=== PATIENT | female | born 1990 | race Caucasian/White ===

== ENCOUNTER → 2018-11-16 | Outpatient (CLI) | payer OTHER ==
[~2018-11-16] MED LIST: birth control PO
== END ==
LOC: LAB 11:49
PROVIDERS: ATTEND Student in an Organized Health Care Education/Training Program
DX: O20.0 Threatened abortion (principal)
CPT/HCPCS: 36415; 84702

== ENCOUNTER 2018-12-20 04:53 | Observation (INO) | payer OTHER ==
[~2018-12-20] VITALS: Ht 170.2 cm; Wt 57.6 kg
[2018-12-20] VITALS (9 sets, daily range): BP systolic 96–108; BP diastolic 60–71
--- NOTE | 2018-12-20 05:04 | ER Report ---
History and Physical Time Seen By MD: 05:00 (ASTRID BONNER MD) Time Seen By MD: 07:00 (NADER DUMONT DO) HPI/ROS CHIEF COMPLAINT: lower abdominal pain HISTORY OF PRESENT ILLNESS: This is a 28 year old female. She is having abdominal pain, lower abdomen and off to the lower left. Severe and crampy in nature. Started to have a fever, low grade at home and some nausea and vomiting. Had a normal bowel movement despite feeling like she would possibly have diarrhea. No dysuria or frequency. No vaginal bleeding or discharge. Had miscarriage several weeks ago, resolved, but still has not had a period, and there is a possibility she could be . REVIEW OF SYSTEMS: Constitutional: As above. Eyes: No vision changes. ENT: No sore throat. No congestion. Cardiovascular: No chest pain. No palpitations Respiratory: No shortness of breath. No cough. Gastrointestinal: As above. Genitourinary: As above. Musculoskeletal: No musculoskeletal pain. Skin: No rashes. Neurological: No dizziness. No headache. (ASTRID BONNER MD) HPI/ROS Please see Dr. Bonner's note (NADER DUMONT DO) Allergies: Coded Allergies: No Known Drug Allergies (Unverified , 06/10/15) Home Meds Reported Medications Vits W-Ca,Fe,Fa(<1MG) ( VITAMINS) 1 Each Tablet, 1 EACH PO DAILY, TAB 12/20/18 Discontinued Reported Medications [ control] No Conflict Check, 1 TAB PO QDAY 06/10/15 Reviewed Nurses Notes: Yes (ASTRID BONNER MD) Hx Smoking: No Smoking Status: Never Smoker Hx Substance Use Disorder: No Hx Alcohol Use: No (ASTRID BONNER MD) Constitutional Vital Sign - Last 24 Hours 12/20/18 12/20/18 12/20/18 12/20/18 05:00 05:01 05:23 05:30 Temp 99.6 Pulse 113 109 Resp 20 B/P (MAP) 134/88 (103) 128/88 127/92 (104) Pulse Ox 95 98 O2 Delivery Room Air 12/20/18 12/20/18 12/20/18 12/20/18 05:38 05:53 06:00 06:08 Pulse 100 100 99 B/P (MAP) 121/84 (96) Pulse Ox 95 98 96 12/20/18 12/20/18 12/20/18 12/20/18 06:23 06:46 06:58 07:03 Pulse 104 104 102 B/P (MAP) 123/80 (94) Pulse Ox 98 99 99 12/20/18 12/20/18 12/20/18 12/20/18 07:08 07:13 07:18 07:23 Pulse 116 107 118 114 Pulse Ox 97 100 97 100 12/20/18 12/20/18 12/20/18 07:28 07:33 07:38 Pulse 108 108 114 Pulse Ox 95 95 (NADER DUMONT DO) Physical Exam General Appearance: The patient is alert. No acute distress. Eyes: Pupils are equal, round. No pallor, injection or icterus. ENT: Mucous membranes are moist. Normal oral mucosa. Posterior oropharynx is normal. Neck: Supple and non tender. Respiratory: Lungs are clear to auscultation. Cardiovascular: Regular rate and rhythm. No murmurs, gallops or rubs. Normal capillary refill. Gastrointestinal: Abdomen is soft, tender in periumbilical, suprapubic area and somewhat to the left lower abdomen as well. Nondistended. No rebound or guarding. Normal active bowel sounds. No costovertebral angle tenderness with percussion. Neurological: Alert and oriented x3. No focal neurologic deficits Skin: Warm and dry. No rashes. Musculoskeletal: No tenderness DIFFERENTIAL DIAGNOSIS: After history and physical exam, differential diagnosis was considered for abdominal pain in a female including but not limited to ovarian cyst, ovarian torsion, urinary tract infection (ASTRID BONNER MD) Physical Exam Please see Dr. Bonner's note (NADER DUMONT DO) Medical Decision Making Data Points Result Diagram: 12/20/18 0540 12/20/18 0540 Laboratory Hematology Test 12/20/18 05:40 White Blood Count 12.8 k/uL (4.5-11.0) H Red Blood Count 5.21 M/uL (4.17-5.56) Hemoglobin 15.4 g/dL (12.0-16.0) Hematocrit 43.9 % (34.0-47.0) Mean Corpuscular Volume 84.2 fL (80.0-96.0) Mean Corpuscular Hemoglobin 29.5 pg (26.0-33.0) Mean Corpuscular Hemoglobin Concent 35.0 g/dL (32.0-36.0) Red Cell Distribution Width 12.2 % (11.5-14.5) Platelet Count 240 K/uL (150-450) Mean Platelet Volume 9.0 fL (7.2-11.1) Neutrophils (%) (Auto) 83.4 % (39.4-72.5) H Lymphocytes (%) (Auto) 8.2 % (17.6-49.6) L Monocytes (%) (Auto) 7.7 % (4.1-12.4) Eosinophils (%) (Auto) 0.4 % (0.4-6.7) Basophils (%) (Auto) 0.3 % (0.3-1.4) Nucleated RBC Relative Count (auto) 0.0 /100WBC Neutrophils # (Auto) 10.6 K/uL (2.0-7.4) H Lymphocytes # (Auto) 1.0 K/uL (1.3-3.6) L Monocytes # (Auto) 1.0 K/uL (0.3-1.0) Eosinophils # (Auto) 0.1 K/uL (0.0-0.5) Basophils # (Auto) 0.0 K/uL (0.0-0.1) Nucleated RBC Absolute Count (auto) 0.00 K/uL Chemistry Test 12/20/18 05:40 Sodium Level 141 mmol/L (137-145) Potassium Level 3.6 mmol/L (3.5-5.0) Chloride Level 105 mmol/L (98-107) Carbon Dioxide Level 23 mmol/L (22-31) Blood Urea Nitrogen 15 mg/dl (7-18) Creatinine 0.70 mg/dl (0.52-1.04) Glomerular Filtration Rate Calc > 60.0 Random Glucose 97 mg/dl (75-110) Calcium Level 9.6 mg/dl (8.4-10.2) Total Bilirubin 0.6 mg/dl (0.2-1.3) Aspartate Amino Transf (AST/SGOT) 21 U/L (0-35) Alanine Aminotransferase (ALT/SGPT) 21 U/L (0-56) Alkaline Phosphatase 59 U/L (0-126) Total Protein 8.4 g/dl (6.3-8.2) Albumin 4.6 g/dl (3.5-5.0) Amylase Level 99 U/L (0-110) Lipase 70 U/L (23-300) Human Chorionic Gonadotropin, Qual Negative (NEGATIVE) Urinalysis Test 12/20/18 04:51 Urine Color Yellow Urine Clarity Clear Urine pH 6.0 pH (4.8-9.5) Urine Specific [place] 1.018 Urine Protein Negative mg/dL (NEGATIVE) Urine Glucose (UA) Negative mg/dL (NEGATIVE) Urine Ketones Negative mg/dL (NEGATIVE) Urine Blood Negative (NEGATIVE) Urine Nitrite Negative (NEGATIVE) Urine Bilirubin Negative (NEGATIVE) Urine Urobilinogen Negative mg/dL (0.2-1.9) Urine Leukocyte Esterase Negative (NEGATIVE) Urine RBC None /HPF (0-2/HPF) Urine WBC <1 /HPF (0-5/HPF) Urine Squamous Epithelial Cells Few /LPF (</=FEW) Urine Bacteria Negative /HPF (NONE-FEW) Urine Mucus None /HPF (NONE-FEW) (NADER DUMONT DO) EKG/Im[place] [facility] [place] NAME[place] Nicky Howell : 1990 MR: [id number] V: [id number] EXAM DATE: [id number] ORDERING PHYSICIAN: ASTRID BONNER TECHNOLOGIST: Location: [facility] [place] Patient: Nicky Howell : 1990 Visit/Account:[id number] Date of Sevice: 12/20/2018 COMPUTED TOMOGRAPHY ABDOMEN AND PELVIS WITH INTRAVENOUS CONTRAST DATE OF EXAM: 12/20/2018 5:30 AM INDICATION: Lower abdominal pain. COMPARISON: None. TECHNIQUE: Contrast enhanced abdomen and pelvis CT performed during the injection of 75 ml of Isovue 370. Sagittal and coronal reconstructions were performed. One of the following dose optimization techniques was utilized in the performance of this exam: Automated exposure control; adjustment of the mA and/or kV according to the patient's size; or use of an iterative reconstruction technique. Specific details can be referenced in the facility's radiology CT exam operational policy. FINDINGS: Lung bases: Clear. Liver and hepatic vasculature: Normal. Gallbladder and bile ducts: Normal. Spleen: Upper limit normal size. Pancreas: Normal. Adrenals: Normal. Kidneys, ureters and bladder: Normal. Retroperitoneum and aorta: Multiple mildly enlarged periaortic lymph nodes may be reactive. The aorta is normal. GI tract, mesentery and peritoneum: The appendix is inflamed, thick-walled and dilated to 9 mm in diameter. It extends medially from the cecum into the right hemipelvis. No pneumatosis or pneumoperitoneum. There is a small volume of free fluid in the pelvis, with a slightly thickened adjacent peritoneum as can be seen on image 120 series 2. No drainable collection/abscess. No evidence of obstruction elsewhere in the bowel. Uterus and adnexa: Collapsing follicle in left ovary. Bones and soft tissues: No acute abnormality or suspicious lesion. IMPRESSION: Acute appendicitis. Associated small volume of free fluid in the pelvis with suggestion of peritoneal inflammation. No evidence of gross perforation or drainable collection/abscess Dr. Ramírez discussed this case with ASTRID BONNER on 12/20/2018 7:03 AM. Report Dictated By: Raimundo Ramírez MD at 12/20/2018 6:52 AM Report E-Signed By: Raimundo Ramírez MD at 12/20/2018 7:04 AM WSN:[id number] (NADER DUMONT DO) ED Course/Re-evaluation Clinical Indication for ER IV: Hydration, IV Access (ASTRID BONNER MD) ED Course I assumed patient care from Dr. Bonner at 7:00. Patient was diagnosed with appendicitis. Dr. Nevarez evaluated the patient and admitted the patient to surgical service. Patient was stable at time of admission. Decision to Disposition Date: Dec 20, 2018 Decision to Disposition Time: 07:49 (NADER DUMONT DO) Depart Departure Latest Vital Signs Vital Signs Date Time Temp Pulse Resp B/P (MAP) Pulse Ox O2 Delivery O2 Flow Rate FiO2 12/20/18 07:38 114 95 12/20/18 06:46 123/80 (94) 12/20/18 05:01 99.6 20 Room Air (NADER DUMONT DO) Impression: Primary Impression: Appendicitis Condition: Condition Unchanged Disposition: Admitted from ER Referrals: REILLY BROOKS DO (PCP) ASTRID BONNER MD Dec 20, 2018 05:04 NADER DUMONT DO Dec 20, 2018 07:23
[2018-12-20] MEDS ORDERED: PREN-127 PO (05:06)
[2018-12-20] MEDS ORDERED: NS(*) 0.9% 1000 ML BAG 1,000 ML IV ONE (05:30)
[2018-12-20] MEDS ORDERED: IOPAMIDOL 76% 100 ML INFUS BTL 100 ML ONE (05:42)
[2018-12-20 06:00] LABS: PLATELET COUNT, AUTOMATED 240 K/uL (150-450)
--- NOTE | 2018-12-20 07:11 | RADIOLOGY IMAGING REPORT ---
FACILITY: [facility] - [place] PATIENT NAME: Nicky Howell : 1990 MR: [id number] V: [id number] EXAM DATE: [id number] ORDERING PHYSICIAN: ASTRID PEREZ TECHNOLOGIST: Location: [facility] Patient: Nicky Howell : 1990 Visit/Account:[id number] Date of Sevice: 12/20/2018 COMPUTED TOMOGRAPHY ABDOMEN AND PELVIS WITH INTRAVENOUS CONTRAST DATE OF EXAM: 12/20/2018 5:30 AM INDICATION: Lower abdominal pain. COMPARISON: None. TECHNIQUE: Contrast enhanced abdomen and pelvis CT performed during the injection of 75 ml of Isovue 370. Sagittal and coronal reconstructions were performed. One of the following dose optimization te chtyrellques was utilized in the performance of this exam: Automated exposure control; adjustment of the mA and/or kV according to the patient's size; or use of an iterative reconstruction technique. Spec [facility] details can be referenced in the facility's radiology CT exam operational policy. FINDINGS: Lung bases: Clear. Liver and hepatic vasculature: Normal. Gallbladder and bile ducts: Normal. Spleen: Upper limit normal size. Pancreas: Normal. Adrenals: Normal. Kidneys, ureters and bladder: Normal. Retroperitoneum and aorta: Multiple mildly enlarged periaortic lymph nodes may be reactive. The aor ta is normal. GI tract, mesentery and peritoneum: The appendix is inflamed, thick-walled and dilated to 9 mm in di ameter. It extends medially from the cecum into the right hemipelvis. No pneumatosis or pneumoperit oneum. There is a small volume of free fluid in the pelvis, with a slightly thickened adjacent perit oneum as can be seen on image 120 series 2. No drainable collection/abscess. No evidence of obstruc tion elsewhere in the bowel. Uterus and adnexa: Collapsing follicle in left ovary. Bones and soft tissues: No acute abnormality or suspicious lesion. IMPRESSION: Acute appendicitis. Associated small volume of free fluid in the pelvis with suggestion of peritoneal inflammation. No evidence of gross perforation or drainable collection/abscess Dr. Ramírez discussed this case with ASTRID PEREZ on 12/20/2018 7:03 AM. Report Dictated By: Raimundo Ramírez MD at 12/20/2018 6:52 AM Report E-Signed By: Raimundo Ramírez MD at 12/20/2018 7:04 AM WSN:[id number]
[2018-12-20] MEDS ORDERED: PIPERACILLIN/TAZO*3.375GM VIAL 3.375 GM in NS(*) 0.9% 100 ML MINI-BAG 100 ML IVPB ONE (07:15)
[2018-12-20] MEDS ORDERED: NS(*) 0.9% 1000 ML BAG 1,000 ML IV PRN ×2 (07:31→20:00)
[2018-12-20] MEDS ORDERED: MORPHINE 2 MG/ML SYR IVP PRN (07:35)
[2018-12-20] MEDS ORDERED: ONDANSETRON 4 MG/2 ML VIAL IVP PRN (07:35)
[2018-12-20] MEDS ORDERED: FLUSH 10 ML SYR IVP PRN (07:35)
[2018-12-20] MEDS ORDERED: NALOXONE HCL 0.4 MG/ML VIAL IVP PRN (07:35)
--- NOTE | 2018-12-20 08:14 | Gen Surgery History & Physical ---
History of Present Illness Chief Complaint RLQ abdominal pain History of Present Illness 28yo healthy female presents with RLQ abdominal pain that started at 9:00 pm last evening. Worse overnight. Had some N/V and F/C. CT c/w appendicitis. WBC 12K. No previous abdominal surgery. Only med is PNV. No allergies, no other medical problems. History Home Meds Reported Medications Vits W-Ca,Fe,Fa(<1MG) ( VITAMINS) 1 Each Tablet, 1 EACH PO DAILY, TAB 12/20/18 Discontinued Reported Medications [ control] No Conflict Check, 1 TAB PO QDAY 06/10/15 Allergies: Coded Allergies: No Known Drug Allergies (Unverified , 06/10/15) Review of Systems All Systems Reviewed/Normal: Yes, Except as Noted Constitutional: Fever, Chills Gastrointestinal: Nausea, Vomiting, Abdominal Pain Exam General Appearance: Alert, Awake, No Acute Distress, Afebrile Neuro: No Gross deficits Eyes: PERRLA GI: Other (Soft, RLQ and suprapubic TTP with peritoneal irritation) Extremities: Warm, Perfused Psych: Alert & Oriented X3, Appropriate Mood & Affect Medical Decision Making Data Points Result Diagram: 12/20/18 0540 12/20/18 0540 Assessment and Plan Problems: (1) Appendicitis Status: Acute Assessment & Plan: 12/20/18: Admit, NPO, IV fluids, IV abx, to OR today for lap appy. I have explained appendicitis and treatment with the patient in great detail. I have discussed non-operative management with abx only vs lap appy with her along with risks and benefits of each option. I have recommended lap appy due to the prolonged treatment course of non-operative management and 30% risk of recurrent appendicitis in next 2 years vs lap appy where most are treated and out of the hospital within 24 hours, often much less for uncomplicated appendicitis and surgery. I have explained the surgery in great detail along with risks and recovery. She indicates her understanding of this discussion and her questions have been answered. She would like to proceed with lap appy. Condition Stable. Time Spent: < 30 min Venous Thromboembolism VTE Risk Physician Assess for VTE Risk: Yes Patient's VTE Risk: Low VTE Diagnostic Test 2 Days Prior to Admit: No Antithrombotics Is Pt On Any Antithrombotics?: No Problem Qualifiers (1) Appendicitis: Appendicitis type: acute appendicitis Acute appendicitis type: with localized peritonitis Appendicitis gangrene presence: without gangrene Appendicitis perforation presence: without perforation Appendicitis abscess presence: without abscess Qualified Codes: K35.30 - Acute appendicitis with localized peritonitis, without perforation or gangrene CAMILO VELÁZQUEZ MD Dec 20, 2018 08:14
[2018-12-20] MEDS: FAMOTIDINE 20 MG TAB PO SCH ×2 (09:05→21:13)
[2018-12-20] MEDS: PIPERACILLIN/TAZO*3.375GM VIAL 3.375 GM in NS(*) 0.9% 100 ML MINI-BAG 100 ML IVPB SCH ×2 (14:18→20:00)
[2018-12-20] MEDS ORDERED: NORMOSOL R SOLN(*) 1000 ML BAG 1,000 ML IV ONE (16:25)
[2018-12-20] MEDS ORDERED: SUGAMMADEX SOD 200 MG/2 ML SDV ONE ×2 (17:58→19:31)
[2018-12-20] MEDS ORDERED: LIDOCAINE MPF 1% 5 ML VIAL ONE (17:58)
[2018-12-20] MEDS ORDERED: PROPOFOL EMUL(*) 10MG/ML 20 ML 20 ML ONE (17:58)
[2018-12-20] MEDS ORDERED: DEXAMETHASONE SOD 4 MG/ML VIAL ONE (17:58)
[2018-12-20] MEDS ORDERED: ONDANSETRON 4 MG/2 ML VIAL ONE (17:58)
[2018-12-20] MEDS ORDERED: ROCURONIUM BR 10 MG/ML 5 ML SY 5 ML ONE (17:59)
[2018-12-20] MEDS ORDERED: KETAMINE HCL 200 MG/20 ML MDV ONE (17:59)
[2018-12-20] MEDS ORDERED: fentaNYL CITR 250 MCG/5 ML AMP ONE (17:59)
[2018-12-20] MEDS ORDERED: ROPIVACAINE 0.5% 20 ML VIAL ONE (18:48)
[2018-12-20] MEDS ORDERED: MIDAZOLAM 2 MG/2 ML VIAL ONE (18:51)
[2018-12-20] MEDS ORDERED: ACETAMINOPHEN 325 MG TAB PO PRN (20:00)
[2018-12-20] MEDS ORDERED: fentaNYL CITR 100 MCG/2 ML AMP ONE (20:08)
--- NOTE | 2018-12-20 20:13 | Post Operative Progress Note ---
Post Operative Progress Note Date: Dec 20, 2018 Time: 19:59 Surgeon: Jenelle Dictation number: [id number] Anesthesia: GETA by Dr. Rudd Pre-Op Diagnosis: Acute appendicitis Post-Op Diagnosis: ZAID Findings: C/W dx, no perforation, gangrene, or abscess Procedure(s): Lap appy Specimen Removed:(May be N/A): Appendix Complications: None Fluids: see anesthesia record Estimated Blood Loss: Minimal Date OP Note Dictated: Dec 20, 2018 Time OP Note Dictated: 20:01 CAMILO VELÁZQUEZ MD Dec 20, 2018 20:13
--- NOTE | 2018-12-20 21:07 | OPERATIVE REPORT 1 ---
EVENT DATE: December 20, 2018 SURGEON: Nikita Almanzar MD ANESTHESIOLOGIST: Baltazar Bean MD ANESTHESIA: General endotracheal anesthesia. PREOPERATIVE DIAGNOSIS Acute appendicitis. POSTOPERATIVE DIAGNOSIS Acute appendicitis. PROCEDURE PERFORMED Laparoscopic appendectomy. COMPLICATIONS None. CONDITION Stable. BLOOD LOSS Minimal. FINDINGS The patient's appendix was inflamed, but there was no purulence, gangrene, or perforation. SPECIMEN Appendix. INDICATIONS This 28-year-old female was brought in through the Emergency Room with a one-day history of right lower quadrant abdominal pain and a CT consistent with acute appendicitis. White count was 12,000. She provided consent for laparoscopic appendectomy. DESCRIPTION OF PROCEDURE The patient was brought to the operating room and placed supine on the operating table. General endotracheal anesthesia was administered, and her abdomen was prepped and draped in a sterile fashion. Timeout was completed, and I injected the infraumbilical skin with 0.5% ropivacaine plain. I made a curvilinear smiley face incision on the inferior umbilical rim, dissected through the dermis and subcutaneous fat. I identified the midline fascia and made a vertical incision in the midline fascia and grasped the fascial edges with Abel clamps to retract the fascia away from the underlying viscera and then bluntly entered the peritoneal cavity with my finger. I placed two interrupted 0 Vicryl sutures transversely through the vertical fascial defect and inserted a 12 mm Jeff- type port through this wound and secured it in place with sutures. I insufflated the abdomen to a pressure of 15 mmHg and inserted a 5 mm, 30-degree angled scope through this port. Next, under direct visualization, I placed a 5 mm port in the suprapubic midline and a 5 mm port in the left lower quadrant. The patient was placed in Trendelenburg and planed towards her left, then moved the viscera from the right lower quadrant. I then swept the omentum away from the right lower quadrant as well as the small bowel and immediately identified the appendix, which looked grossly inflamed and red, but no purulence, gangrene, or perforation. I then divided the mesoappendix with the LigaSure device all the way down to the base of the appendix and then divided the base of the appendix flush with the cecum with the Endo YVETTE stapler and a blue load. I then placed the appendix in a surgical specimen retrieval bag and removed it from the abdomen through the umbilical port site. I then irrigated and dried the right lower quadrant and the pelvis and removed all the fluid that was in the pelvis, which was nonpurulent. I removed the fluid from the right lower quadrant. The staple line and mesoappendix were hemostatic, and the staple line was flush with the cecum with no residual appendix. I then had the bed flattened, and I moved the omentum back over the cecum, removed the 5 mm ports, inspected the peritoneal surfaces for bleeding, and there was none. I then removed the camera, desufflated the abdomen, removed the umbilical port, and then placed a [id number] 0 Vicryl suture between the first two sutures and tied all three of these down with good reapproximation of the fascial edges with no remaining fascial defect. I then closed the skin at each incision with 4-0 Monocryl subcuticular sutures. The skin was cleaned and dried, and Steri-Strips were applied, followed by sterile surgical dressings. The patient was awakened and extubated in the operating room and transported to the recovery room in stable condition having tolerated the procedure without any apparent problems. SUZETTE
[2018-12-21] VITALS: BP 95/64
[2018-12-21] MEDS: traMADol 50 MG TAB PO PRN ×2 (00:32→09:10)
[2018-12-21 01:00] VITALS: BP 97/63
[2018-12-21 02:00] VITALS: BP 99/58
[2018-12-21] MEDS: PIPERACILLIN/TAZO*3.375GM VIAL 3.375 GM in NS(*) 0.9% 100 ML MINI-BAG 100 ML IVPB SCH ×2 (02:00→08:23)
[2018-12-21 02:53] VITALS: BP 94/63
[2018-12-21] MEDS ORDERED: DOCU-202 PO (07:27)
[2018-12-21] MEDS ORDERED: TRAM-420 PO (07:27)
--- NOTE | 2018-12-21 07:31 | Short(Outpt) Discharge Summary ---
Discharge Summary Reason for Hosp/Final Diag: (1) Appendicitis Status: Acute Hospital Course & Plan: 12/20/18: Admit, NPO, IV fluids, IV abx, to OR today for lap appy. I have explained appendicitis and treatment with the patient in great detail. I have discussed non-operative management with abx only vs lap appy with her along with risks and benefits of each option. I have recommended lap appy due to the prolonged treatment course of non-operative management and 30% risk of recurrent appendicitis in next 2 years vs lap appy where most are treated and out of the hospital within 24 hours, often much less for uncomplicated appendicitis and surgery. I have explained the surgery in great detail along with risks and recovery. She indicates her understanding of this discussion and her questions have been answered. She would like to proceed with lap appy. 12/21/18: POD#1 s/p lap appy. Doing well. No issues. D/C to home. Departure Discharge to: Home, Self Care Discharge Instructions Home Meds Active Scripts Tramadol Hcl (TRAMADOL HCL) 50 Mg Tablet, 1 TAB PO Q4H PRN for PAIN, #15 TAB 0 Refills Prov:CAMILO VELÁZQUEZ MD 12/21/18 Docusate Sodium (DOCUSATE SODIUM) 100 Mg Capsule, 1 CAP PO BID, #30 CAPSULE 0 Refills Prov:CAMILO VELÁZQUEZ MD 12/21/18 Reported Medications Vits W-Ca,Fe,Fa(<1MG) ( VITAMINS) 1 Each Tablet, 1 EACH PO DAILY, TAB 12/20/18 Discontinued Reported Medications [ control] No Conflict Check, 1 TAB PO QDAY 06/10/15 Follow up Referrals: General Surgery - 01/15/19 @ Surgery, General with CAMILO VELÁZQUEZ MD You have a follow up appointment scheduled with Dr. Velázquez on 01/15/19, at 4:00pm. Diet: Regular Activity: As Tolerated Special Instructions: You may remove the white surgical dressings on 12/23/18, then you can shower. After showering, leave the incisions open to air but leave the steristrips in place until they fall off on their own. Do not immerse the incisions for 2 weeks. Unless you've had a tubal ligation or hysterectomy, and you're on some form of control, use an additional form of control such as a condom or abstinence because medicinal forms of control are less effective for 30 days after surgery. Problem Qualifiers (1) Appendicitis: Appendicitis type: acute appendicitis Acute appendicitis type: with localized peritonitis Appendicitis gangrene presence: without gangrene Appendicitis perforation presence: without perforation Appendicitis abscess presence: without abscess Qualified Codes: K35.30 - Acute appendicitis with localized peritonitis, without perforation or gangrene CAMILO VELÁZQUEZ MD Dec 21, 2018 07:31
[2018-12-21 07:38] VITALS: BP 108/75
[2018-12-21] MEDS: FAMOTIDINE 20 MG TAB PO SCH (08:23)
[2018-12-21 08:37] VITALS: Ht 170.2 cm; Wt 57.6 kg
[2018-12-21] MEDS ORDERED: DOCUSATE SODIUM 100 MG CAP PO SCH (09:00)
== END 2018-12-21 07:46 | disposition home or self-care (01) ==
LOC: ER 05:21 → MED 08:03 → INTOOBSV 08:03
PROVIDERS: ADMIT Surgery; ATTEND Surgery
DX: K35.80 Unspecified acute appendicitis (principal)
CPT/HCPCS: 44970; 74177; 81001; 82150; 83690; 84703; 85025; 88304; 99284; G0378; J1100; J2001; J2250; J2405; J2543; J2704; J2795; J3010; J3490; J7030; Q9967; 82040; 82247; 82310; 82374; 82435; 82565; 82947; 84075; 84132; 84155; 84295; 84450; 84460; 84520